=== PATIENT | female | born 1990 | race Caucasian/White ===

== ENCOUNTER 2018-07-24 23:52 | Emergency (ER) | payer MEDICAID ==
[~2018-07-24] VITALS: Ht 165.1 cm; Wt 54.4 kg
--- NOTE | 2018-07-25 | NUR ---
PT BIB [facility]. A/OX4, RESPONSIVE TO VERBAL AND TACTILE STIMULI. PER PARAMEDICS, EMS WAS CALLED BY FRIENDS THAT WERE IN A PRIVATE VEHICLE W/ PT BECAUSE PT WAS UNCONTROLLABLY CRYING WHILE ETOH INTOXICATION. VSS. PT DENIES PAIN, C/P, SOB, N/V/D, DIZZINESS, HEADACHE.
--- NOTE | 2018-07-25 00:22 | NUR ---
PT CONTINUES TO CRY UNCONTROLLABLY, HYPERVENTILATING AT TIMES. PT COACHED ON EFFECTIVE BREATHING. VS REMAINS STABLE.
[2018-07-25] MEDS ORDERED: LORAZEPAM 2 MG/1 ML VIAL ONE (00:52)
[2018-07-25] MEDS ORDERED: LORAZEPAM 2 MG/1 ML VIAL IM ONE (01:00)
[2018-07-25] MEDS ORDERED: IV NORMAL SALINE 1000 ML BAG IV ONE (01:15)
--- NOTE | 2018-07-25 01:18 | NUR ---
PT VS 97/29, HR 77. ER MD NOTIFIED. RECEIVED ORDERS FOR IV FLUIDS BOLUS. ORDERS CARRIED OUT.
--- NOTE | 2018-07-25 02:13 | NUR ---
PT SLEEPING IN BED COMFORTABLY. PT DOES NOT APPEAR TO BE IN ANY APPARENT DISTRESS. VSS.
--- NOTE | 2018-07-25 03:04 | NUR ---
PT STILL VERY DROWSY, UNABLE TO SELF-AMBULATE WITHOUT DIFFICULTIES. PT BACK IN BED, ASLEEP.
--- NOTE | 2018-07-25 06:19 | NUR ---
Patient discharged to home in stable conditon. Written and verbal after care instructions given. Patient verbalizes understanding of instructions. PT SELF-AMBULATED WITHOUT DIFFICULTY. ALL BELONGINGS W/ PT. 20 G IV ACCESS IN L AC REMOVED PRIOR TO D/C, INNER CANNULA INTACT.
[2018-07-25 06:20] VITALS: BP 94/53
== END 2018-07-25 06:21 | disposition home or self-care (01) ==
LOC: ER 23:56
DX: F10.129 Alcohol abuse with intoxication, unspecified (principal); F41.9 Anxiety disorder, unspecified
CPT/HCPCS: 36415; 84702; 96372; 99284; A4663; J2060; J7030